=== PATIENT | female | born 1990 | race Caucasian/White ===

== ENCOUNTER 2019-11-23 20:36 | Emergency (ER) | payer OTHER, SELFPAY ==
--- NOTE | 2019-11-23 20:39 | XR_ITS ---
WS: [id number] LEFT ANKLE: 3 VIEW(S) TECHNIQUE: AP, oblique(s) and lateral. HISTORY: injury COMPARISON: None available. Normal anatomic alignment with no fracture or dislocation. No joint effusion or widening of the ankle mortise. No significant degenerative changes at the joint spaces. No soft tissue abnormality. XR/XR ankle LT min 3V* [id number] IMPRESSION: Normal LEFT ankle.
--- NOTE | 2019-11-23 21:37 | ED_ITS ---
HPI - Extremity Injury (Lower) General: Chief Complaint: Extremity Injury, Lower Stated Complaint: left ankle injury Time Seen by Provider: 11/23/19 21:34 History of Present Illness: HPI Narrative: Juliet is a very nice 29-year-old female who states she was out running playing tag with her daughter and in the rain when she felt something pop and felt pain from her ankle. She is complaining of pain over the left lateral malleolus. She denies any numbness, tingling or weakness. She has increased pain with weightbearing. Review of Systems General: Reports: 10 or more systems reviewed and unremarkable except in HPI and below PFSH ED PFSH: Medical History No pertinent past medical history Surgical History S/P adenoidectomy S/P tonsillectomy Social History Smoking and tobacco status: never smoked Physical Exam Extremity: NARRATIVE EXTREMITY EXAM: Left ankle with swelling over the lateral malleolus. Mild tenderness to palpation in this area. Small amount of ecchymosis noted. She is neurovascular intact distal in the foot. There is no foot pain with palpation. There is no tenderness to palpation over the proximal fibula. Patient has intact Achilles tendon with a reassuring Holt's test indicating no sign of Achilles tendon rupture. Course Vital Signs: Vital signs: Vital Signs Temperature 98 F 11/23/19 21:38 Pulse Rate 68 11/23/19 23:13 Respiratory Rate 16 11/23/19 23:13 Blood Pressure 130/95 11/23/19 23:13 Pulse Oximetry 94 11/23/19 23:13 MDM - Extremity Injury (Lower) MDM Narrative: Medical decision making narrative: The case was reviewed with Dr. Bose. He agrees to see the patient in follow-up. At this time she has no other complaints or concerns. Patient's pain is over the lateral malleolus of her ankle. She is neurovascularly intact distal. Clinically I see no sign of Achilles tendon rupture or more proximal or distal fracture at this time. We will mobilize the patient's foot and have her use crutches until cleared by Dr. Bose. Discharge Plan Discharge Patient Disposition: Home, Self-Care Clinical Impression: Ankle sprain and strain Condition: Stable Prescriptions: [place] 5-325 mg tablet 1 tab PO Q6H PRN (Reason: pain) 5 Days Qty: 8 RF: 0 No Action No Known Home Medications RF: 0 Discharge Orders: Discharge Order (Routine); Ordered 11/23/19 Ordered By: Yvonne Guthrie Referrals: Aniket Bose MD [Physician] - 1-3 days Discharge Diet: Usual diet Discharge Activity: Limit activity as instructed and Use walker/crutches as instructed Patient Instructions: Ankle Sprain (ED) Activity Restrictions/Additional Instructions: Please return to the ER immediately for any of the signs or symptoms listed on your discharge instruction sheets, worsening/changing of your symptoms, you are not getting better as quickly as expected, or for ANY other cause or concerns. Do not bear weight and use crutches at all times until your ankle pain is gone. Be certain to follow-up with Dr. Bose for recheck. Discharge Date/Time: 11/23/19 23:16 Coding Level of Care Code ED Manager Scientific for Brando Singh
[2019-11-23 21:38] VITALS: BP 130/95; PULSE 91; RESP 18; TEMP 36.6; O2SAT 98
[2019-11-23] MEDS: HYDROcodone-acetaminophen 5-325 mg Tablet 1 TAB PO (22:15)
[2019-11-23 23:13] VITALS: BP 130/95; PULSE 68; RESP 16; O2SAT 94
--- NOTE | 2019-11-25 08:37 | DCPLANNER ---
manager produce had message to schedule a follow up appointment for patient with ortho. manager produce called the ortho clinic, spoke with Pat, gave clinic patients information. manager produce was told that patients information would be printed and reviewed. Clinic will call shelter case manager and patient with appointment information.
--- NOTE | 2019-11-30 07:57 | DCPLANNER ---
Appointment scheduled for 11.25.19 with ortho has been cancelled.
== END 2019-11-23 23:16 | disposition home or self-care (01) ==
PROVIDERS: Emergency Provider Emergency Medicine
DX: S93.402A Sprain of unspecified ligament of left ankle, initial encounter (principal); S96.912A Strain of unspecified muscle and tendon at ankle and foot level, left foot, initial encounter; X58.XXXA Exposure to other specified factors, initial encounter
CPT/HCPCS: 12345; 29515; 73610; 99281; 99283

== ENCOUNTER → 2019-12-30 13:36 | Outpatient (BNVA) | payer OTHER, SELFPAY | PROVIDERS: Visit Provider Orthopaedic Surgery | DX: S99.912A Unspecified injury of left ankle, initial encounter (principal); X58.XXXA Exposure to other specified factors, initial encounter | CPT/HCPCS: 73610 ==

== ENCOUNTER 2020-12-24 10:01 | Outpatient (CLI) | payer OTHER, SELFPAY ==
[2020-12-24 10:55] LABS: SARS Covid-2 Antigen Positive (Negative)
[2020-12-25 15:47] LABS: Coronavirus Test Green County Detected
== END 2020-12-24 10:02 | disposition home or self-care (01) ==
LOC: LAB 10:03
PROVIDERS: Visit Provider Emergency Medicine
DX: Z20.822 Contact with and (suspected) exposure to COVID-19 (principal)
CPT/HCPCS: 87426; 87635

== ENCOUNTER → 2021-01-11 17:11 | Outpatient (BNVA) | payer OTHER, SELFPAY | PROVIDERS: Visit Provider Nurse Practitioner Family | DX: Z34.90 Encounter for supervision of normal pregnancy, unspecified, unspecified trimester (principal); Z68.24 Body mass index [BMI] 24.0-24.9, adult; Z71.89 Other specified counseling | CPT/HCPCS: 81025 ==

== ENCOUNTER → 2021-02-23 15:09 | Outpatient (BNVA) | payer OTHER, SELFPAY | PROVIDERS: Visit Provider Obstetrics & Gynecology | DX: Z34.80 Encounter for supervision of other normal pregnancy, unspecified trimester (principal); B37.9 Candidiasis, unspecified | CPT/HCPCS: 80307; 84315; 85027; 86592; 86762; 86803; 86850; 86900; 87086; 87340; 87491; 87591; 87661 ==

== ENCOUNTER → 2021-03-16 10:54 | Outpatient (BNVA) | payer OTHER, SELFPAY | PROVIDERS: Visit Provider Nurse Practitioner Women's Health | DX: Q74.0 Other congenital malformations of upper limb(s), including shoulder girdle (principal); L65.9 Nonscarring hair loss, unspecified | CPT/HCPCS: 82105; 84315; 84439; 84443; 88175 ==

== ENCOUNTER 2021-03-20 15:11 | Outpatient (CLI) | payer OTHER, SELFPAY ==
--- NOTE | 2021-03-20 15:45 | US_ITS ---
WS: [id number] ULTRASOUND RENAL TECHNIQUE: Ultrasound examination of both kidneys. CLINICAL INFORMATION: R10.9 - Unspecified abdominal pain COMPARISON: None. FINDINGS: RIGHT:Suspected 4 mm nonobstructing right calyceal calculus. No hydronephrosis in either kidney. Right kidney is normal in size and appearance. Echogenicity: Normal. Cortical thickness: 1.5 cm; Normal. Hydronephrosis: None. Perinephric fluid: None. Right kidney measures: 10.8 cm x 4.8 cm x 4.6 cm. LEFT: Left kidney is normal in size and appearance. Echogenicity: Normal. Cortical thickness: 1.9 cm; Normal. Hydronephrosis: None. Perinephric fluid: None. Left kidney measures: 10.2 cm x 4.2 cm x 4.0 cm. Normal visualized aorta. Echogenic debris dependently bladder US/US renal BI* [id number] IMPRESSION: 1. No hydronephrosis in either kidney. 2. Suspected 4 mm nonobstructing right calyceal calculus 3. Echogenic debris within the bladder. Recommend correlation for UTI.
== END 2021-03-20 15:12 | disposition home or self-care (01) ==
PROVIDERS: Visit Provider Nurse Practitioner Women's Health
DX: R10.9 Unspecified abdominal pain (principal)
CPT/HCPCS: 76770

== ENCOUNTER → 2021-04-13 14:30 | Outpatient (BNVA) | payer OTHER, SELFPAY | PROVIDERS: Visit Provider Obstetrics & Gynecology | DX: Z36.89 Encounter for other specified antenatal screening (principal) | CPT/HCPCS: 76805 ==

== ENCOUNTER → 2021-05-31 13:58 | Outpatient (BNVA) | payer OTHER, SELFPAY | PROVIDERS: Visit Provider Obstetrics & Gynecology | DX: R39.9 Unspecified symptoms and signs involving the genitourinary system (principal) | CPT/HCPCS: 81000; 87077; 87086; 87184 ==

== ENCOUNTER → 2021-06-15 10:44 | Outpatient (BNVA) | payer OTHER, SELFPAY | PROVIDERS: Visit Provider Obstetrics & Gynecology | DX: Z78.9 Other specified health status (principal); Q74.0 Other congenital malformations of upper limb(s), including shoulder girdle; O41.8X10 Other specified disorders of amniotic fluid and membranes, first trimester, not applicable or unspecified; O46.8X1 Other antepartum hemorrhage, first trimester; L65.9 Nonscarring hair loss, unspecified; R10.9 Unspecified abdominal pain | CPT/HCPCS: 82950; 84315; 85027 ==

== ENCOUNTER → 2021-08-09 16:00 | Outpatient (BNVA) | payer OTHER, SELFPAY | PROVIDERS: Visit Provider Obstetrics & Gynecology | DX: Z34.80 Encounter for supervision of other normal pregnancy, unspecified trimester (principal) | CPT/HCPCS: 84315; 87081 ==

== ENCOUNTER → 2021-08-24 10:16 | Outpatient (BNVA) | payer BC, MEDICAID, SELFPAY | PROVIDERS: Visit Provider Obstetrics & Gynecology | DX: Z34.80 Encounter for supervision of other normal pregnancy, unspecified trimester (principal); Z20.822 Contact with and (suspected) exposure to COVID-19 | CPT/HCPCS: 81000; 87635 ==

== ENCOUNTER → 2021-08-31 11:15 | Outpatient (BNVA) | payer BC, MEDICAID, SELFPAY | PROVIDERS: Visit Provider Obstetrics & Gynecology | DX: Z34.80 Encounter for supervision of other normal pregnancy, unspecified trimester (principal); Z20.822 Contact with and (suspected) exposure to COVID-19 | CPT/HCPCS: 84315; 87635 ==

== ENCOUNTER 2021-09-03 05:42 | Inpatient (IN) | payer BC, MEDICAID, SELFPAY ==
[2021-09-03] VITALS (16 sets, daily range): BP systolic 99–122; BP diastolic 60–77; PULSE 62–88; RESP 14–19; TEMP 36.8; O2SAT 98; BMI 27.4
[2021-09-03] MEDS: ondansetron 2 mg/ML SDV 2 mL 4 MG IVP (05:50)
[2021-09-03] MEDS: oxytocin 30 UNIT/500 ML BAG 600 UNIT IV (06:06)
[2021-09-03 06:13] LABS: Basophils # 0.1 10^3/uL (0.0-0.1); Basophils % 0.3 %; Eosinophils % 0.1 %; Hemoglobin 13.2 g/dL (11.5-15.3); Lymphocytes # 6.1 10^3/uL (0.8-4.8); Lymphocytes % 38.3 %; Mean Corpuscular HGB Conc 32.2 g/dL (30.0-36.0); Mean Corpuscular Hemoglobin 26.9 pg (28.0-34.0); Mean Corpuscular Volume 83.7 fl (81-99); Monocytes # 0.7 10^3/uL (0.2-0.9); Monocytes % 4.5 %; Neutrophils # 8.89 10^3/uL (1.8-7.7); Neutrophils % 56.4 %; Nucleated Red Blood Cells % 0 %; Platelet Count 345 10^3/cmm (130-400); Red Cell Distribution Width 13.8 % (12.1-15.1); White Blood Count 15.8 10^3/uL (4.0-10.0)
[2021-09-03] MEDS: fentaNYL 50 mcg/mL INJ 2mL IVP (06:15)
--- NOTE | 2021-09-03 06:27 | PM.DELIVERY ---
Delivery Note: Date of delivery: September 03, 2021 Pre-delivery diagnoses: 31-year-old 2 para 1-0-0-1 at 40 weeks estimated gestational age presenting in active labor Post-delivery diagnoses: Status post spontaneous vaginal delivery Procedure: Spontaneous vaginal delivery Delivering Physician: William Hernandez Findings: 100 Pre-Delivery Course: The patient had an unremarkable . The patient presented to the hospital in active labor. She had spontaneous rupture of membranes. She quickly progressed to complete and was bearing down. Dr. Sherman was contacted, but was at home, and I was already arriving at the hospital. As result I stepped in for Dr. Sherman while waiting for her to come. Delivery: DELIVERY: The patient progressed to complete without difficulty. She delivered a male with a weight of 7 pounds 13 ounces with Apgars of 8, 9. The baby was delivered from the KAYLA position and placed on the mother's abdomen. The cord was then clamped and cut a minute after delivery. There was a tight nuchal cord x1. I delivered the baby through the nuchal cord. There was no meconium. The placenta and 3 vessel cord were delivered intact shortly thereafter. The perineum and vaginal vault were carefully examined. Superficial vaginal wall lacerations were noted both on the right and left vaginal wall as well as a posterior midline first-degree tear. None of the tears required repair. The mother and the baby were in stable condition. Dr. Sherman arrived shortly after delivery. Post-Delivery Status: Good History History History 2 Term 1 Miscarriages/Ectopic 0 0 Living Children 1 A&P Assessment and plan (1) 40 weeks gestation of : Status: Acute (2) Spontaneous vaginal delivery: Status: Acute Coding Level of Care Code Acute Internal Control Consultant for Chg Fwd Diagnoses 40 weeks gestation of Z3A.40 Spontaneous vaginal delivery O80
[2021-09-03] MEDS: prenatal vitamin Capsule 1 CAP PO (09:34)
[2021-09-03] MEDS: ibuprofen 800 mg tablet PO ×3 (09:34→21:05)
[2021-09-03] MEDS: metoprolol succinate ER (24 HR) 25 mg Tablet PO (09:59)
[2021-09-03] MEDS: HYDROcodone-acetaminophen 5-325 mg Tablet PO ×2 (13:32→21:05)
[2021-09-03] MEDS: docusate sodium 100 mg Capsule PO (18:04)
[2021-09-03 18:28] LABS: Hematocrit 33.4 % (37.0-47.0); Hemoglobin 10.7 g/dL (11.5-15.3); Mean Corpuscular Volume 84.1 fl (81-99); Mean Platelet Volume 10.7 fL (7.4-10.4); Platelet Count 242 10^3/cmm (130-400); Red Blood Count 3.97 10^6/uL (4.1-5.3); Red Cell Distribution Width 13.8 % (12.1-15.1); White Blood Count 15.2 10^3/uL (4.0-10.0)
[2021-09-04 01:05] VITALS: BP 128/84; PULSE 64; RESP 16; TEMP 36.7; O2SAT 99
[2021-09-04 04:45] VITALS: BP 95/59; PULSE 70; RESP 16; TEMP 36.6; TEMP 36.7; O2SAT 98
[2021-09-04] MEDS: HYDROcodone-acetaminophen 5-325 mg Tablet PO (05:52)
--- NOTE | 2021-09-04 07:14 | PM.DCS ---
Discharge Providers Date of Admission: 09/03/21 05:42 Date of Discharge: September 04, 2021 Attending Provider at Admission: Charisse Sherman MD Attending Provider at Discharge: Charisse Sherman MD Diagnoses at Discharge Discharge Diagnosis (1) 40 weeks gestation of : Status: Acute (2) Spontaneous vaginal delivery: Status: Acute Reason for Visit Reason for Visit: ROM Hospital Course Hospital Course The patient was admitted in active labor and had spontaneous vaginal delivery about 15 minutes later. The baby was delivered by Dr. Hernandez, as I was enroute to the hospital. She did well and was ready for discharge on day #1. Physical Exam Narrative: no concerns this morning Const: COMMON NORMALS: no acute distress, average body habitus, patient oriented x3, no limitations, healthy appearing, alert and well nourished GENERAL APPEARANCE: cooperative, comfortable, well kempt and well developed ORIENTATION/CONSCIOUSNESS: Yes awake, Yes oriented to person, Yes oriented to place and Yes oriented to time Resp: COMMON NORMALS: normal respiratory effort EFFORT & INSPECTION: Yes able to speak in complete sentences GI: COMMON NORMALS: Soft to palpation and non-tender PALPATION: Yes Soft to palpation Extremity: COMMON NORMALS: no calf tenderness Neuro: COMMON NORMALS: patient oriented x3 SENSORIUM/ORIENTATION: Yes alert, Yes oriented to person, Yes oriented to place and Yes oriented to time Psych: APPEARANCE: Yes well kempt Discharge Data Studies Completed and Pending Laboratory Results WBC 15.2 10^3/uL (4.0-10.0) H 09/03/21 18:15 RBC 3.97 10^6/uL (4.1-5.3) L 09/03/21 18:15 Hgb 10.7 g/dL (11.5-15.3) L 09/03/21 18:15 Hct 33.4 % (37.0-47.0) L 09/03/21 18:15 MCV 84.1 fl (81-99) 09/03/21 18:15 MCH 27.0 pg (28.0-34.0) L 09/03/21 18:15 MCHC 32.0 g/dL (30.0-36.0) 09/03/21 18:15 RDW 13.8 % (12.1-15.1) 09/03/21 18:15 Plt Count 242 10^3/cmm (130-400) 09/03/21 18:15 MPV 10.7 fL (7.4-10.4) H 09/03/21 18:15 Neut % (Auto) 56.4 % 09/03/21 05:54 Lymph % (Auto) 38.3 % 09/03/21 05:54 [place] % (Auto) 4.5 % 09/03/21 05:54 Eos % (Auto) 0.1 % 09/03/21 05:54 Baso % (Auto) 0.3 % 09/03/21 05:54 Neut # (Auto) 8.89 10^3/uL (1.8-7.7) H 09/03/21 05:54 Lymph # (Auto) 6.1 10^3/uL (0.8-4.8) H 09/03/21 05:54 [place] # (Auto) 0.7 10^3/uL (0.2-0.9) 09/03/21 05:54 Eos # (Auto) 0.0 10^3/uL (0.0-0.8) 09/03/21 05:54 Baso # (Auto) 0.1 10^3/uL (0.0-0.1) 09/03/21 05:54 Nucleated RBC % (auto) 0 % 09/03/21 05:54 Nucleated RBCs # 0.0 /100WBC 09/03/21 05:54 Vitals Last Vital Signs Temp 98.0 F 09/04/21 04:45 Pulse 70 09/04/21 04:45 Resp 16 09/04/21 04:45 BP 95/59 09/04/21 04:45 Pulse Ox 98 09/04/21 04:45 Discharge Plan Discharge Patient Disposition: Home Condition: Stable Prescriptions: Continued prenat.vits,shakira,[id number] Tablet 1 tab PO DAILY 0RF polyethylene glycol 3350 [Miralax] 17 gram/dose powder 17 g PO DAILY PRN (Reason: Constipation) 0RF metoprolol succinate 25 mg tablet extended release 24 hr 25 mg PO DAILY Qty: 90 4RF diphenhydramine HCl [Benadryl] 25 mg capsule 25 mg PO .at hs PRN (Reason: Insomnia) 0RF calcium carbonate [Tums] 200 mg calcium (500 mg) tablet,chewable 200 mg PO BID PRN (Reason: Heartburn) 0RF Discharge Orders: Discharge Order (Routine); Ordered 09/04/21 Ordered By: Charisse Sherman Referrals: Jeferson Rosales MD [Physician] - 10/15/21 9:15 am Patient Instructions: Opioid Safety Discharge Attestations Time Spent in Discharge Care*: less than 30 min Quality Metrics Clinical Quality Measures [ No reported AMI, CVA or VTE this stay] Coding Level of Care Code Acute Chg FW DC note Diagnoses 40 weeks gestation of Z3A.40 Spontaneous vaginal delivery O80
[2021-09-04] MEDS: docusate sodium 100 mg Capsule PO (08:53)
[2021-09-04] MEDS: ibuprofen 800 mg tablet PO (08:53)
[2021-09-04] MEDS: prenatal vitamin Capsule 1 CAP PO (08:53)
[2021-09-04 10:08] VITALS: BP 110/75; PULSE 84; RESP 16; TEMP 36.7; O2SAT 99
== END 2021-09-04 10:10 | disposition home or self-care (01) | DRG 807 ==
LOC: OPOB 06:11 → OBGYN 06:11
PROVIDERS: Family Medicine; Admitting Provider Obstetrics & Gynecology; Visit Provider Obstetrics & Gynecology
DX: O69.81X0 Labor and delivery complicated by cord around neck, without compression, not applicable or unspecified (principal); Z37.0 Single live birth; O70.0 First degree perineal laceration during delivery; Z3A.40 40 weeks gestation of pregnancy
CPT/HCPCS: 12345; 36415; 59409; 85025; 85027; J2405; J3010

== ENCOUNTER → 2022-06-28 09:47 | Outpatient (BNVA) | payer BC, MEDICAID, SELFPAY | PROVIDERS: PCP Family Medicine; Visit Provider Family Medicine | DX: R00.0 Tachycardia, unspecified (principal) | CPT/HCPCS: 80053; 80061; 85025 ==